=== PATIENT | female | born 1975 | race Hispanic/Latino ===

== ENCOUNTER → 2024-06-26 | Day surgery (SDC) | payer BC ==
[~2024-06-26] MED LIST: ATORVASTATIN CA20 MG PO; CENTRUM ADULTS1 EACH PO; CETIRIZINE HCL10 MG; FARXIGA10 MG; FERROUS SULFAT324 MG PO; GLIMEPIRIDE2 MG PO; GLYXAMBI 25 MG1 EACH PO; LIDOCAINE HCL 2% LOCAL INJ 5 ML SDV VIAL INJ ONE; LISINOPRIL-HCT1 EACH PO; MAGNESIUM; MIDAZOLAM HCL 2 MG/2 ML VIAL ONE; MONTELUKAST SOD10 MG PO; MOUNJARO2.5 MG/0.5 INJ; OMEPRAZOLE40 MG PO; OSTEO BI-FLEX1 EAC2; OZEMPIC0.25 MG/0. SC; PROPOFOL IV EMULSION 10 MG/ML 20 ML VIAL ONE
[2024-06-26] MEDS: LACTATED RINGER'S 1,000 ML ONE (12:18)
[2024-06-26 15:04] VITALS: TEMP 98.5
[2024-06-26 15:15] VITALS: BP 124/82; PULSE 75; RESP 16; O2SAT 98
== END | disposition home or self-care (01) ==
LOC: OR 12:01
PROVIDERS: ATTEND Internal Medicine Gastroenterology
DX: K29.50 Unspecified chronic gastritis without bleeding (principal); B96.81 Helicobacter pylori [H. pylori] as the cause of diseases classified elsewhere; K31.89 Other diseases of stomach and duodenum; K20.90 Esophagitis, unspecified without bleeding; K44.9 Diaphragmatic hernia without obstruction or gangrene; K21.9 Gastro-esophageal reflux disease without esophagitis; Z71.3 Dietary counseling and surveillance; D64.9 Anemia, unspecified; E11.9 Type 2 diabetes mellitus without complications; I11.0 Hypertensive heart disease with heart failure; I50.9 Heart failure, unspecified; Z71.89 Other specified counseling; E78.00 Pure hypercholesterolemia, unspecified; Z01.810 Encounter for preprocedural cardiovascular examination; Z79.84 Long term (current) use of oral hypoglycemic drugs; Z79.85 Long-term (current) use of injectable non-insulin antidiabetic drugs; Z79.899 Other long term (current) drug therapy
CPT/HCPCS: 36415; 43239; 81025; 82948; 93005; J2003; J2250; J2470; J2704; J7121